=== PATIENT | female | born 1940 | race Caucasian/White ===

== ENCOUNTER 2017-01-21 18:20 | Inpatient (IN) | payer MEDICARE ==
[~2017-01-21] VITALS: Ht 157.5 cm; Wt 45.1 kg
[~2017-01-21 18:20] MED LIST: AMLO5TAB4 PO; ASPI81TA2 PO; CLON1TAB4 PO; IBUP-1482 PO; LEVO100T46 PO; LISI-603 PO; PROP80CA PO; SIMV40TA5 PO
--- NOTE | 2017-01-21 18:25 | NUR ---
BBRA 38 FROM HOME FOR INCREASED ALOC TODAY . PLACED ON MONITOR. GOWNED PT. VSS. AWAITING MD ORDER.
[2017-01-21 18:48] LABS: BASOPHILS # (AUTO) 0.4 /CMM (0.0-0.2); EOSINOPHILS % (AUTO) 0.1 % (0.0-6.0); HEMATOCRIT 26 % (33-45); HEMOGLOBIN 8.2 g/dL (11.5-14.8); LYMPHOCYTES # (AUTO) 0.5 /CMM (0.8-4.8); LYMPHOCYTES % (AUTO) 2.6 % (20.0-44.0); MEAN CORPUSCULAR HEMOGLOBIN 22 PG (26.0-33.0); MEAN CORPUSCULAR HGB CONC 32 g/dl (31.0-36.0); MEAN CORPUSCULAR VOLUME 68 fL (82-100); MONOCYTES # (AUTO) 1.2 /CMM (0.1-1.30); MONOCYTES % (AUTO) 6.8 % (2.0-12.0); NEUTROPHILS # (AUTO) 16.1 /CMM (1.8-8.9); NEUTROPHILS % (AUTO) 88.5 % (43.0-81.0); PLATELET COUNT (AUTO) 294 /CMM (150-450); RDW COEFFICIENT OF VARIATION 15.6 (11.5-15.0); RED BLOOD CELL COUNT(AUTO) 3.73 MIL/uL (4.0-5.2); WHITE BLOOD COUNT (AUTO) 18.2 K/uL (4.3-11.0)
--- NOTE | 2017-01-21 18:49 | NUR ---
CALLED NURSING SUP. FOR TELE BED
[2017-01-21] MEDS ORDERED: ATOR80TA PO (19:04)
[2017-01-21] MEDS ORDERED: TRAZ-147 PO (19:04)
[2017-01-21] MEDS ORDERED: LEVO112T2 PO (19:04)
[2017-01-21] MEDS ORDERED: DIVA500T7 PO (19:04)
[2017-01-21] MEDS ORDERED: QUET50TA PO (19:04)
[2017-01-21] MEDS ORDERED: QUET25TA PO (19:04)
--- NOTE | 2017-01-21 19:16 | NUR ---
Assumed care of pt. pt sitting up in bed w/ resp even & unlabored, nad noted. Sent to CT.
--- NOTE | 2017-01-21 19:22 | NUR ---
REPORT GIVEN TO ADELINE FOR IMMANUEL
[2017-01-21 19:23] LABS: INR 0.94 (0.87-1.13); PROTHROMBIN TIME 9.8 SECS (9.5-12.7)
[2017-01-21 19:29] LABS: CALCIUM, SERUM 8.9 mg/dL (8.5-10.1); CARBON DIOXIDE 25 mmol/L (21-32); CHLORIDE 93 mmol/L (98-107); CREATININE 0.7 mg/dL (0.6-1.3); GLUCOSE 146 mg/dL (74-106); POTASSIUM 4.1 mmol/L (3.5-5.1); SODIUM SERUM 130 mmol/L (136-145); UREA NITROGEN, BLOOD 22 mg/dL (7-18)
[2017-01-21 19:36] LABS: ALANINE AMINOTRANSFERASE < 6 U/L (12-78); ALBUMIN 3.4 g/dL (3.4-5.0); ALKALINE PHOSPHATASE 93 U/L (46-116); ASPARTATE AMINOTRANSFERASE 24 U/L (15-37); BILIRUBIN,DIRECT 0.1 mg/dL (0.0-0.2); BILIRUBIN,TOTAL 0.5 mg/dL (0.2-1.0); TOTAL PROTEIN, SERUM 7.4 g/dL (6.4-8.2)
[2017-01-21] MEDS ORDERED: ASPIRIN 325 MG TABLET ONE (19:44)
[2017-01-21] MEDS ORDERED: LEVOFLOXACIN 750 MG /D5W 150ML 150 ML IV ONE ×2 (19:44→20:00)
[2017-01-21 19:45] LABS: TROPONIN I 0.414 ng/mL (0.00-0.056)
[2017-01-21] MEDS ORDERED: IV SET PRIMARY PUMP SET 1 EA INFUS.SET MC ONE ×2 (19:45→23:53)
--- NOTE | 2017-01-21 19:46 | NUR ---
Report given to RAVINDRA Godwin for pt admission to [facility] rm 111-2
--- NOTE | 2017-01-21 19:58 | NUR ---
PT TRANSFERRED VIA ACLS PROTOCOL TO [facility] RM 111-2.
[2017-01-21 20:00] VITALS: BP 141/62
[2017-01-21] MEDS ORDERED: ASPIRIN 325 MG TABLET PO ONE (20:00)
--- NOTE | 2017-01-21 20:00 | NUR ---
REGULATORY SERVICES CONSULTANT NOTES RECEIVED PATIENT FROM ER VIA GURNEY, IV ANTIBIOTICS STARTED IN ER, INFUSING WELL. IV SITE FREE FROM ANY S/S OF INFILTRATION OR PHLEBITIS. PATIENT ALERT AND ORIENTED X2 TO NAME AND PERSON, UNSURE ABOUT HER SURROUNDINGS. PATIENT'S SON AT BEDSIDE, POC DISCUSSED WITH VERBALIZATION OF UNDERSTANDING. PLACED ON [place], REVEALING SINUS TACHYCARDIA, HR = 108 WITH OCCASIONAL PVCs. SKIN ASSESSED, PHOTOGRAPHS OF SKIN CONDITIONS DOCUMENTED PER PROTOCOL. CALL LIGHT LEFT WITHIN EASY REACH, BED IN LOWEST AND LOCKED POSITION. WILL CONTINUE TO CLOSELY MONITOR.
[2017-01-21 20:11] LABS: BASOPHILS % (MANUAL) 0 % (0.0-2.0); EOSINOPHILS % (MANUAL) 0 % (0-4); LYMPHOCYTES % (MANUAL) 2 % (16-48); MONOCYTES % (MANUAL) 3 % (0-11.0); NEUTROPHILS % (MANUAL) 95 (42-76)
[2017-01-21] MEDS ORDERED: ONDANSETRON HCL/PF 4 MG/2 ML VIAL IVP PRN (21:30)
[2017-01-21] MEDS ORDERED: FUROSEMIDE 20 MG/2 ML VIAL IV PRN (21:30)
[2017-01-21] MEDS ORDERED: ALBUTEROL FS 2.5 MG/3 ML VIAL.NEB NEB PRN (21:30)
[2017-01-21] MEDS ORDERED: Z GUARD REMEDY 2 OZ OINT TP PRN (21:30)
[2017-01-21] MEDS ORDERED: clonazePAM 0.5 MG TABLET ONE ×2 (21:33→23:27)
[2017-01-21] MEDS ORDERED: DIVALPROEX SODIUM 500 MG TABLET.DR PO ONE (21:33)
[2017-01-21 21:44] LABS: IRON, SERUM 12 ug/dl (50-175); TOTAL IRON BINDING CAPACITY 372 ug/dl (250-450)
[2017-01-21] MEDS ORDERED: clonazePAM 1 MG TABLET ONE (21:44)
[2017-01-21] MEDS: DIVALPROEX SODIUM 500 MG TABLET.DR PO SCH (21:44)
[2017-01-21] MEDS: clonazePAM 1 MG TABLET PO SCH (21:49)
--- NOTE | 2017-01-21 22:00 | NUR ---
RN NOTE: ADMINISTERED HS KLONOPIN AND DEPAKOTE ORDERED. PATIENT ABLE TO TOLERATE WELL.
--- NOTE | 2017-01-21 23:28 | NUR ---
RN NOTES DR KANG AT BEDSIDE TO ASSESS THE PATIENT. PATIENT IS ANXIOUS. DR KANG WITH NEW ORDER FOR KLONOPIN 0.5 MG PO X1 DOSE NOW. ORDER READ BACK FOR CLARIFICATION. WILL ADMINISTER AND MONITOR CLOSELY
[2017-01-21] MEDS ORDERED: clonazePAM 0.5 MG TABLET PO ONE (23:30)
[2017-01-21] MEDS ORDERED: IBUPROFEN 400 MG TABLET ONE (23:40)
[2017-01-21] MEDS: IBUPROFEN 400 MG TABLET PO PRN (23:45)
--- NOTE | 2017-01-21 23:45 | NUR ---
RN NOTES DR KANG MADE AWARE OF LATEST TEMPERATURE 101.3. DR KANG WITH NEW ORDER FOR IBUPROFEN 400MG Q6H PRN. ORDER READ BACK FOR CLARIFICATION. WILL ADMINISTER MEDICATION AND CONTINUE TO CLOSELY MONITOR
[2017-01-21] MEDS ORDERED: VANCOMYCIN 1 GM VIAL ONE (23:53)
[2017-01-21] MEDS ORDERED: SECONDARY IV SET 1 EA INFUS.SET MC ONE (23:54)
[2017-01-21] MEDS ORDERED: IV NS 0.9% 250 ML IV ONE (23:54)
[2017-01-21] MEDS ORDERED: BLOOD IV SET 1 EA INFUS.SET MC ONE (23:54)
[2017-01-21] MEDS ORDERED: IV D5W 250 ML IV ONE (23:55)
[2017-01-22] VITALS: BP 136/81
[2017-01-22] MEDS ORDERED: VANCOMYCIN 1 GM in IV D5W 250 ML IV ONE ×2
[2017-01-22] MEDS ORDERED: MEROPENEM 500 MG VIAL IV ONE (00:56)
[2017-01-22] MEDS ORDERED: IV NS 0.9% 250 ML IV ONE (01:55)
--- NOTE | 2017-01-22 02:10 | NUR ---
RN NOTES - BLOOD TRANSFUSION 0210: BLOOD TRANSFUSION STARTED VIA LEFT FA IV #[id number], WILL MONITOR CLOSELY 0450: BLOOD TRANSFUSION COMPLETED, TOLERATED WELL, FREE FROM ANY S/S OF BLOOD TRANSFUSION REACTION.
[2017-01-22 04:00] VITALS: BP 128/59
[2017-01-22] MEDS ORDERED: MEROPENEM 500 MG in IV NS 0.9% 50 ML IV SCH (05:00)
[2017-01-22] MEDS ORDERED: SECONDARY IV SET 1 EA INFUS.SET MC ONE (05:02)
[2017-01-22] MEDS ORDERED: FUROSEMIDE 20 MG/2 ML VIAL ONE (05:02)
[2017-01-22] MEDS ORDERED: IV NS 0.9% 50 ML IV ONE (05:03)
--- NOTE | 2017-01-22 07:00 | NUR ---
RN CLOSING NOTES PATIENT RESTING IN BED. IN AND OUT MATIAS CATHETERIZATION WITH 950CC OUTPUT. PATIENT ENDORSED TO THE AM SHIFT NURSE FOR CONTINUITY OF CARE. DUE MEDS FROM [id number] IN PATIENT'S CHART DUE TO COMPUTER SYSTEM DOWNTIME.
--- NOTE | 2017-01-22 07:15 | NUR ---
RN INITIAL NOTES: Rec'd pt awake on bed, A/O x1 w/ confusion, on and off crying, and looks anxious. On room air, saturating at 97%. On telemonitor, SR w/ occasional PVCs, HR 92. Pt has L AC G20 and LFA G20, SL, flushed, patent & intact w/ no signs of infection/ infiltration noted. Provided comfort & safety measures. Needs attended. Will continue to monitor.
[2017-01-22 07:52] LABS: HEMATOCRIT 32 % (33-45); HEMOGLOBIN 9.9 g/dL (11.5-14.8); MEAN CORPUSCULAR HEMOGLOBIN 22 PG (26.0-33.0); MEAN CORPUSCULAR HGB CONC 31 g/dl (31.0-36.0); MEAN CORPUSCULAR VOLUME 72 fL (82-100); PLATELET COUNT (AUTO) 296 /CMM (150-450); RDW COEFFICIENT OF VARIATION 17.9 (11.5-15.0); RED BLOOD CELL COUNT(AUTO) 4.46 MIL/uL (4.0-5.2); WHITE BLOOD COUNT (AUTO) 15.2 K/uL (4.3-11.0)
[2017-01-22 08:00] VITALS: BP 97/67
[2017-01-22 08:06] LABS: ALANINE AMINOTRANSFERASE 24 U/L (12-78); ALBUMIN 3.1 g/dL (3.4-5.0); ALKALINE PHOSPHATASE 102 U/L (46-116); ASPARTATE AMINOTRANSFERASE 25 U/L (15-37); B-TYPE NATRIURETIC PEPTIDE 3051 PG/ML (0-125); BILIRUBIN,TOTAL 0.7 mg/dL (0.2-1.0); CALCIUM, SERUM 8.4 mg/dL (8.5-10.1); CARBON DIOXIDE 25 mmol/L (21-32); CHLORIDE 93 mmol/L (98-107); CREATININE 0.9 mg/dL (0.6-1.3); GLUCOSE 100 mg/dL (74-106); PHOSPHORUS 3.6 mg/dL (2.5-4.9); POTASSIUM 3.7 mmol/L (3.5-5.1); SODIUM SERUM 129 mmol/L (136-145); TOTAL PROTEIN, SERUM 7.7 g/dL (6.4-8.2); UREA NITROGEN, BLOOD 22 mg/dL (7-18)
[2017-01-22] MEDS ORDERED: FEE PK DOSING 1 MIN EA MC ONE (08:12)
[2017-01-22 08:34] LABS: VALPROIC ACID 64 ug/mL (50-100)
[2017-01-22] MEDS: ASPIRIN 81 MG TAB.CHEW PO SCH (08:36)
[2017-01-22] MEDS: LEVOTHYROXINE SODIUM 112 MCG TABLET PO SCH (08:37)
[2017-01-22] MEDS: PANTOPRAZOLE 40 MG TABLET.DR PO SCH (08:37)
[2017-01-22] MEDS: FUROSEMIDE 20 MG/2 ML VIAL IV SCH (08:38)
[2017-01-22] MEDS: DOCUSATE SODIUM 100 MG CAPSULE PO SCH ×2 (08:38→16:53)
[2017-01-22] MEDS: QUETIAPINE FUMARATE 25 MG TABLET PO SCH ×3 (08:38→21:26)
[2017-01-22] MEDS: ENOXAPARIN SODIUM 40 MG/0.4 ML DISP.SYRIN SQ SCH ×2 (08:39→21:24)
[2017-01-22] MEDS: AMLODIPINE BESYLATE 5 MG TABLET PO SCH ×2 (08:39→16:50)
[2017-01-22] MEDS: LISINOPRIL (20MG) 20 MG TABLET PO SCH ×2 (08:39→16:52)
[2017-01-22 08:46] LABS: EOSINOPHILS % (MANUAL) 1 % (0-4); LYMPHOCYTES % (MANUAL) 4 % (16-48); MONOCYTES % (MANUAL) 7 % (0-11.0); NEUTROPHILS % (MANUAL) 88 (42-76)
[2017-01-22 08:50] LABS: TROPONIN I 0.507 ng/mL (0.00-0.056)
[2017-01-22 09:06] LABS: CHOLESTEROL 129 mg/dL (<200); HDL CHOLESTEROL 55 mg/dL (40-60); LDL 50 mg/dL (0-99); THYROID STIMULATING HORMONE 1.195 uIU/mL (0.358-3.74); TRIGLYCERIDES 70 mg/dL (30-150)
--- NOTE | 2017-01-22 11:01 | NUR ---
RN NOTES: Dr. Sandoval made aware of trending up Trop I and BNP 3051 w/ orders for cardiac consult w/ Dr. Layne and Pysch consult c/o Dr. Livingston.
--- NOTE | 2017-01-22 11:03 | NUR ---
RN NOTES: Called Dr. Layne for cardio consult. Awaiting for call back.
--- NOTE | 2017-01-22 11:10 | NUR ---
RN NOTES: Dr. Anguiano seen & examined pt. Made aware of the trop I and BNP. Consult w/ Dr. Layne cancelled, secretary to the vice president of his office notified.
--- NOTE | 2017-01-22 11:20 | NUR ---
RN NOTES: Explained to pt the importance of Telemonitor but pt keeps on removing it. Dr. Anguiano made aware.
--- NOTE | 2017-01-22 11:30 | NUR ---
RN NOTES: Dr. Sandoval seen & examined the pt.
[2017-01-22 11:38] LABS: BILIRUBIN,URINE NEGATIVE (NEGATIVE); BLOOD, URINE 1+ Ery/uL (NEGATIVE); COLOR,URINE YELLOW (YELLOW); KETONES,URINE NEGATIVE (NEGATIVE); LEUKOCYTE ESTERASE ,URINE 1+ (NEGATIVE); NITRITE, URINE POSITIVE (NEGATIVE); PH,URINE 6.5 (5.0-8.0); PROTEIN,URINE TRACE mg/dl (NEGATIVE); UGLUCOSE NEGATIVE (NEGATIVE); UROBILINOGEN,URINE 0.2 EU/dL (0.2)
[2017-01-22 11:42] LABS: APPEARANCE,URINE HAZY (CLEAR)
[2017-01-22 11:53] LABS: BACTERIA,URINE Few /HPF (None Seen); RBC,URINE 0-2 /HPF (0-2); SQUAMOUS EPITHELIAL CELL,UR Few /HPF (None Seen); WBC,URINE 80-100 /HPF (0-3)
[2017-01-22 12:00] VITALS: BP 125/58
[2017-01-22] MEDS: VANCOMYCIN 500 MG in IV D5W 100 ML IV SCH ×2 (12:07→23:08)
--- NOTE | 2017-01-22 12:15 | NUR ---
RN NOTES: Matt from geropysch unit confirmed psych consult of pt w/ Dr. Livingston.
[2017-01-22] MEDS: IBUPROFEN 400 MG TABLET PO PRN (13:48)
[2017-01-22 16:00] VITALS: BP_SYST 132; BP_SYST 174; BP_DIAS 60; BP_DIAS 85
--- NOTE | 2017-01-22 16:00 | NUR ---
RN NOTES: Pt seen & examined by Dr. Persaud. Request for Authorization to release medical records from [facility] faxed.
--- NOTE | 2017-01-22 16:30 | NUR ---
RN NOTES: As per TANA Willard, okay to give BP meds that was not given this AM. BP 187/67, rechecked after 130/60.
--- NOTE | 2017-01-22 16:40 | NUR ---
RN NOTES: Pt seen & examined by Dr. Wayne and TANA Willard.
[2017-01-22] MEDS: MEROPENEM 500 MG in IV NS 0.9% 50 ML IV SCH (16:52)
[2017-01-22 17:20] LABS: THYROID STIMULATING HORMONE 1.226 uIU/mL (0.358-3.74); URIC ACID 3.9 mg/dL (2.6-7.2)
[2017-01-22 17:28] LABS: C-REACTIVE PROTEIN 36.2 mg/dL (0.0-0.9)
[2017-01-22 17:50] LABS: RETICULOCYTE COUNT 1.5 % (0.6-2.5)
--- NOTE | 2017-01-22 19:29 | NUR ---
RN CLOSING NOTES: No acute changes noted w/in shift. Pt is more comfortable & calm w/ family at bedside. Pt kept removing telemonitor, risks explain but pt still removing it. L AC G20 and LFA G20, kept patent & intact w/ no signs of infection/ infiltration noted. Kept well rested. Needs attended. Son Cruz brought some of the medical records of her mother, flagged out in pt's chart. Endorsed to PM RN.
--- NOTE | 2017-01-22 19:30 | NUR ---
Pt in bed. Denies SOB/pain. Family assisted pt with changing. Pt often refuses tele. Explained importance of tele monitor to pt and family, still refused. SL on L FA and L AC. Pt uncooperative with care. Fall precautions observed. Call light in reach.
[2017-01-22 20:00] VITALS: BP 112/76
--- NOTE | 2017-01-22 21:00 | NUR ---
Pt frequently screams but unable to state reason. Appears stable. Always taking off tele monitor. Uncooperative with care and forgetful. Confusion noted. Fall precautions maintained. Call light in reach. Bed alarm used.
[2017-01-22] MEDS: TRAZODONE 50 MG TABLET PO SCH ×2 (21:20→21:26)
[2017-01-22] MEDS: ATORVASTATIN 40 MG TABLET PO SCH ×2 (21:20→21:26)
[2017-01-22] MEDS: DIVALPROEX SODIUM 500 MG TABLET.DR PO SCH (21:21)
[2017-01-22] MEDS: clonazePAM 1 MG TABLET PO SCH (21:21)
[2017-01-23] VITALS: BP 123/59
[2017-01-23 04:00] VITALS: BP 126/63
[2017-01-23] MEDS: MEROPENEM 500 MG in IV NS 0.9% 50 ML IV SCH ×2 (04:03→17:16)
--- NOTE | 2017-01-23 05:33 | NUR ---
Pt remains confused. Oftentimes refusing care and taking off tele monitor. No acute changes noted. Frequently screams without purpose. Fall precautions maintained. Call light in reach. Will continue to monitor.
[2017-01-23 07:09] LABS: HEMATOCRIT 31 % (33-45); MEAN CORPUSCULAR HEMOGLOBIN 23 PG (26.0-33.0); MEAN CORPUSCULAR HGB CONC 32 g/dl (31.0-36.0); MEAN CORPUSCULAR VOLUME 70 fL (82-100); PLATELET COUNT (AUTO) 266 /CMM (150-450); RDW COEFFICIENT OF VARIATION 18.2 (11.5-15.0); RED BLOOD CELL COUNT(AUTO) 4.42 MIL/uL (4.0-5.2); WHITE BLOOD COUNT (AUTO) 10.6 K/uL (4.3-11.0)
--- NOTE | 2017-01-23 07:18 | NUR ---
RN INITIAL NOTES: Rec'd pt awake on bed, A/O x2-3 w/ confusion, on and off crying and screaming, and looks anxious. On room air, not in any distress. On telemonitor, SR. Pt has L AC G20 and LFA G20, SL, flushed, patent & intact w/ no signs of infection/ infiltration noted. Provided comfort & safety measures. Needs attended. Will continue to monitor.
[2017-01-23 07:24] LABS: CALCIUM, SERUM 8.3 mg/dL (8.5-10.1); CARBON DIOXIDE 26 mmol/L (21-32); CHLORIDE 93 mmol/L (98-107); CREATININE 0.8 mg/dL (0.6-1.3); GLUCOSE 128 mg/dL (74-106); MAGNESIUM 1.7 mg/dL (1.8-2.4); PHOSPHORUS 3.6 mg/dL (2.5-4.9); POTASSIUM 3.2 mmol/L (3.5-5.1); SODIUM SERUM 129 mmol/L (136-145); UREA NITROGEN, BLOOD 14 mg/dL (7-18)
[2017-01-23 07:41] LABS: BAND % (MANUAL) 6 % (0.0-5.0); EOSINOPHILS % (MANUAL) 4 % (0-4); LYMPHOCYTES % (MANUAL) 6 % (16-48); MONOCYTES % (MANUAL) 9 % (0-11.0); NEUTROPHILS % (MANUAL) 75 (42-76)
[2017-01-23 08:00] VITALS: BP 145/57
[2017-01-23] MEDS: DOCUSATE SODIUM 100 MG CAPSULE PO SCH ×2 (08:27→18:23)
[2017-01-23] MEDS: QUETIAPINE FUMARATE 25 MG TABLET PO SCH ×2 (08:28→20:01)
[2017-01-23] MEDS: PANTOPRAZOLE 40 MG TABLET.DR PO SCH (08:28)
[2017-01-23] MEDS: AMLODIPINE BESYLATE 5 MG TABLET PO SCH (08:28)
[2017-01-23] MEDS: LEVOTHYROXINE SODIUM 112 MCG TABLET PO SCH (08:28)
[2017-01-23] MEDS: LISINOPRIL (20MG) 20 MG TABLET PO SCH (08:28)
[2017-01-23] MEDS: ASPIRIN 81 MG TAB.CHEW PO SCH (08:28)
[2017-01-23] MEDS: FUROSEMIDE 20 MG/2 ML VIAL IV SCH (08:29)
[2017-01-23] MEDS: ENOXAPARIN SODIUM 40 MG/0.4 ML DISP.SYRIN SQ SCH ×2 (08:32→21:23)
--- NOTE | 2017-01-23 10:00 | NUR ---
RN NOTES: Both IV lines got infiltrated. Tried inserting 3x from 2 RN's but failed. Reported to CN for midline insertion.
[2017-01-23] MEDS ORDERED: SECONDARY IV SET 1 EA INFUS.SET MC ONE (11:08)
[2017-01-23 11:11] LABS: CARCINOEMBRYONIC AG (CEA) 4.8 ng/mL (0.0-4.7)
[2017-01-23] MEDS: Magnesium 1GM/D5W 100ML PREMIX 100 ML IV SCH ×2 (11:13→17:22)
[2017-01-23] MEDS: POTASSIUM CL. PREMIX PERIPHER. 50 ML IV SCH ×4 (11:13→18:24)
[2017-01-23] MEDS ORDERED: IV NS 0.9% 250 ML IV ONE (11:16)
[2017-01-23] MEDS ORDERED: IV SET PRIMARY PUMP SET 1 EA INFUS.SET MC ONE (11:16)
[2017-01-23 12:00] VITALS: BP 142/59
--- NOTE | 2017-01-23 14:00 | NUR ---
RN NOTES: Pt seen and examined by Dr. Livingston.
[2017-01-23 14:42] LABS: URINE SODIUM, RANDOM 37 mmol/l (40-220)
[2017-01-23] MEDS: LORAZEPAM 1 MG TABLET PO PRN (15:03)
[2017-01-23 16:00] VITALS: BP 132/73
[2017-01-23 16:04] LABS: OSMOLALITY,URINE 176 mOS/kg (340-1090)
[2017-01-23] MEDS: VANCOMYCIN 0.75 GM in IV D5W 250 ML IV SCH (17:43)
--- NOTE | 2017-01-23 18:56 | NUR ---
RN CLOSING NOTES: No acute changes noted w/in shift. L AC G20, kept patent & intact w/ no signs of infection/ infiltration noted. Fluid restriction observed. Kept well rested. Needs attended. Call light placed w/in reach. Bed kept low & in locked position. Will endorse to PM RN for IMMANUEL.
--- NOTE | 2017-01-23 19:45 | NUR ---
RN INITIAL NOTE; PT ON THE BED ANXIOUS , ON AND OF CRYING , SCREAMING. A/O X 2 , CONFUSE , BREATHING EVEN AND UNLABORED ON ROOM AIR. PERIPHERAL IV IN LAC 20 G INTACT AND PATENT . INCONTINENT TO BOWEL/BLADDER. BED IN THE LOWEST AND LOCKED POSITION , SAFETY MEASURES APPLIED. DENIED ANY PAIN AT THIS TIME . WILL TURN AND REPOSITION Q2H . WILL KEEP CLEAN AND DRY . CALL LIGHT WITHIN REACH. WILL CONTINUE TO MONITOR .
[2017-01-23 20:00] VITALS: BP 156/74
[2017-01-23] MEDS: ATORVASTATIN 40 MG TABLET PO SCH (21:16)
[2017-01-23] MEDS: DIVALPROEX SODIUM 500 MG TABLET.DR PO SCH (21:16)
[2017-01-23] MEDS: TRAZODONE 50 MG TABLET PO SCH (21:16)
[2017-01-24] MEDS: LORAZEPAM 1 MG TABLET PO PRN ×2 (03:00→10:51)
--- NOTE | 2017-01-24 03:10 | NUR ---
RN NOTE; PRN ATIVAN 1 MG PO GIVEN FOR ANXIETY , TOLERATED WELL AT THIS TIME, WILL CONTINUE TO MONITOR .
[2017-01-24 04:00] VITALS: BP 117/53
[2017-01-24] MEDS ORDERED: IV NS 0.9% 250 ML IV ONE (04:35)
[2017-01-24] MEDS: VANCOMYCIN 0.75 GM in IV D5W 250 ML IV SCH (04:37)
[2017-01-24] MEDS: MEROPENEM 500 MG in IV NS 0.9% 50 ML IV SCH ×2 (05:47→16:08)
[2017-01-24 06:31] LABS: BASOPHILS % (AUTO) 0.2 % (0.0-2.0); EOSINOPHILS # (AUTO) 0.3 /CMM (0.0-0.7); EOSINOPHILS % (AUTO) 3.2 % (0.0-6.0); HEMATOCRIT 29 % (33-45); HEMOGLOBIN 9.4 g/dL (11.5-14.8); LYMPHOCYTES # (AUTO) 0.9 /CMM (0.8-4.8); LYMPHOCYTES % (AUTO) 8.9 % (20.0-44.0); MEAN CORPUSCULAR HEMOGLOBIN 23 PG (26.0-33.0); MEAN CORPUSCULAR HGB CONC 32 g/dl (31.0-36.0); MEAN CORPUSCULAR VOLUME 71 fL (82-100); MONOCYTES # (AUTO) 1.8 /CMM (0.1-1.30); NEUTROPHILS % (AUTO) 69.7 % (43.0-81.0); PLATELET COUNT (AUTO) 339 /CMM (150-450); RDW COEFFICIENT OF VARIATION 18.5 (11.5-15.0); RED BLOOD CELL COUNT(AUTO) 4.15 MIL/uL (4.0-5.2); WHITE BLOOD COUNT (AUTO) 10.1 K/uL (4.3-11.0)
[2017-01-24 07:00] LABS: CALCIUM, SERUM 8.3 mg/dL (8.5-10.1); CARBON DIOXIDE 28 mmol/L (21-32); CHLORIDE 97 mmol/L (98-107); CREATININE 0.6 mg/dL (0.6-1.3); GLUCOSE 192 mg/dL (74-106); MAGNESIUM 2.2 mg/dL (1.8-2.4); PHOSPHORUS 3.5 mg/dL (2.5-4.9); POTASSIUM 3.3 mmol/L (3.5-5.1); SODIUM SERUM 133 mmol/L (136-145); UREA NITROGEN, BLOOD 18 mg/dL (7-18)
--- NOTE | 2017-01-24 07:00 | NUR ---
RN EOS NOTE; PT REMAINED STABLE DURING THE SHIFT. NO ANY DISTRESS NOTED . SLEPT ON AND OFF, PRN ATIVAN GIVEN NEEDED , V/S WNL . IV ATB TOLERATED WELL. ALL NEEDS ATTENDED PROMPTLY. CALL LIGHT WITHIN REACH . WILL ENDORSE TO NEXT SHIFT RN FOR CONTINUITY OF CARE.
[2017-01-24 07:06] LABS: EOSINOPHILS % (MANUAL) 3 % (0-4); LYMPHOCYTES % (MANUAL) 14 % (16-48); MONOCYTES % (MANUAL) 14 % (0-11.0); NEUTROPHILS % (MANUAL) 69 (42-76)
[2017-01-24 07:07] LABS: FERRITIN 67 ng/mL (8-388); THYROID STIMULATING HORMONE 2.586 uIU/mL (0.358-3.74); URIC ACID 3.8 mg/dL (2.6-7.2)
[2017-01-24 08:00] VITALS: BP 115/60
--- NOTE | 2017-01-24 08:00 | NUR ---
MS1/RN AM SHIFT INITIAL NOTES RECEIVED PT AWAKE SITTING IN BED. PT A/O X 1-2 NOTED WITH CONFUSION, ABLE TO VERBALIZED NEEDS, DENIES PAIN. NO ACUTE CHANGE OF CONDITION, NO FEVER. ON ROOM AIR SATURATING @ 98%, NO SOB, RESPIRATIONS EVEN & UNLABORED. LUNG SOUNDS CLEAR. IV SITE FLUSHED, PATENT WITH NO S/S OF INFECTION, HL. PT IS COMFORTABLE AT THIS TIME. CL WITHIN REACHED AND SAFETY MAINTAINED. ON GOING MONITORING.
[2017-01-24] MEDS: LEVOTHYROXINE SODIUM 112 MCG TABLET PO SCH (08:32)
[2017-01-24] MEDS: LISINOPRIL (20MG) 20 MG TABLET PO SCH (08:32)
[2017-01-24] MEDS: DOCUSATE SODIUM 100 MG CAPSULE PO SCH ×2 (08:33→16:08)
[2017-01-24] MEDS: PANTOPRAZOLE 40 MG TABLET.DR PO SCH (08:33)
[2017-01-24] MEDS: AMLODIPINE BESYLATE 5 MG TABLET PO SCH (08:33)
[2017-01-24] MEDS: ASPIRIN 81 MG TAB.CHEW PO SCH (08:33)
[2017-01-24] MEDS: FUROSEMIDE 20 MG/2 ML VIAL IV SCH (08:33)
[2017-01-24] MEDS: QUETIAPINE FUMARATE 25 MG TABLET PO SCH ×2 (08:33→20:46)
[2017-01-24] MEDS: ENOXAPARIN SODIUM 40 MG/0.4 ML DISP.SYRIN SQ SCH ×2 (08:35→20:51)
[2017-01-24] MEDS ORDERED: POTASSIUM CHLORIDE 20 MEQ TAB.PRT.SR PO ONE ×2 (10:00→10:30)
--- NOTE | 2017-01-24 11:30 | NUR ---
MS1/RN ROUNDS - DR. TRIANA UPDATED PT'S CONDITION. PT SEEN & EXAMINED BY DR. TRIANA. NO NEW ORDERS RECEIVED AT THIS TIME.
[2017-01-24] MEDS: IBUPROFEN 400 MG TABLET PO PRN (14:57)
[2017-01-24 16:00] VITALS: BP 148/72
--- NOTE | 2017-01-24 16:15 | NUR ---
MS1/RN ROUNDS - DR. ELLIS UPDATED PT'S CONDITION. ASKED IF ANY TREATMENT FOR THE REPORTED LATEST TROPONIN PER MD, NONE AT THIS TIME. 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 ANDRES @ [phone]. NO NEW ORDERS RECEIVED. NO CHANGE OF CONDITION. MONITORING CONTINUED.
--- NOTE | 2017-01-24 19:40 | NUR ---
MS1/RN AM SHIFT END NOTES ALL NEEDS MET. NO ACUTE CHANGE OF CONDITION NOTED DURING SHIFT. PT ENDORSED TO PM NURSE TO CONTINUE CARE. CL WITHIN REACHED AND SAFETY MAINTAINED.
--- NOTE | 2017-01-24 19:50 | NUR ---
RN INITIAL NOTE; PT ON THE BED RESTING , SCREAMING/CALM/SMILING ON/OFF A/O X 2 , CONFUSE , BREATHING EVEN AND UNLABORED ON ROOM AIR. PERIPHERAL IV IN LAC 20 G INTACT AND PATENT . INCONTINENT TO BOWEL/BLADDER. BED IN THE LOWEST AND LOCKED POSITION , SAFETY MEASURES APPLIED. DENIED ANY PAIN AT THIS TIME . WILL TURN AND REPOSITION Q2H . WILL KEEP CLEAN AND DRY . CALL LIGHT WITHIN REACH. WILL CONTINUE TO MONITOR .
[2017-01-24 20:00] VITALS: BP 157/76
[2017-01-24] MEDS: ATORVASTATIN 40 MG TABLET PO SCH (20:46)
[2017-01-24] MEDS: DIVALPROEX SODIUM 500 MG TABLET.DR PO SCH (20:46)
[2017-01-24] MEDS: TRAZODONE 50 MG TABLET PO SCH (20:46)
[2017-01-25] MEDS ORDERED: IV NS 0.9% 250 ML IV ONE (03:28)
[2017-01-25] MEDS ORDERED: IV SET PRIMARY PUMP SET 1 EA INFUS.SET MC ONE (03:29)
[2017-01-25] MEDS: MEROPENEM 500 MG in IV NS 0.9% 50 ML IV SCH ×2 (04:08→16:08)
[2017-01-25] MEDS: LORAZEPAM 1 MG TABLET PO PRN (04:19)
--- NOTE | 2017-01-25 04:19 | NUR ---
RN NOTE; PRN ATIVAN 1 MG PO GIVEN FOR ANXIETY , TOLERATED WELL AT THIS TIME, WILL CONTINUE TO MONITOR .
--- NOTE | 2017-01-25 05:20 | NUR ---
PATIENT TRANSFERRED TO MED/SURG UNIT BED NO 326-2 FOR FACILITY ACCOMMODATION , REPORT GIVEN TO NURSE SHELBI . PT IS IN STABLE CONDITION WHILE TRANSFERRING .
--- NOTE | 2017-01-25 05:30 | NUR ---
RN NOTE PT ARRIVED ON UNIT. AAOX1-2, CONFUSED. NO S/S OF ANY DISTRESS OR DISCOMFORT AT THIS TIME, BREATHING NON-LABORED AND EVEN. IV INTACT AND PATENT, ABX INFUSING FROM [place]. M/S STATUS. ORIENTATED TO UNIT AND CALL LIGHT. 1:1 AT BEDSIDE. WILL CONT TO MONITOR. WILL F/U WITH DAY SHIFT FOR IMMANUEL.
--- NOTE | 2017-01-25 06:39 | NUR ---
PT EDWARD BEE CALLED AND INFORMED ABOUT PT TRANSFERRING TO MED/SURG UNIT 326-2 ,
[2017-01-25 07:26] LABS: BASOPHILS % (AUTO) 0.1 % (0.0-2.0); EOSINOPHILS # (AUTO) 0.6 /CMM (0.0-0.7); EOSINOPHILS % (AUTO) 6.3 % (0.0-6.0); HEMATOCRIT 31 % (33-45); HEMOGLOBIN 9.8 g/dL (11.5-14.8); LYMPHOCYTES # (AUTO) 1.3 /CMM (0.8-4.8); LYMPHOCYTES % (AUTO) 13.2 % (20.0-44.0); MEAN CORPUSCULAR HEMOGLOBIN 22 PG (26.0-33.0); MEAN CORPUSCULAR HGB CONC 31 g/dl (31.0-36.0); MEAN CORPUSCULAR VOLUME 72 fL (82-100); MONOCYTES % (AUTO) 10.2 % (2.0-12.0); NEUTROPHILS # (AUTO) 7.2 /CMM (1.8-8.9); NEUTROPHILS % (AUTO) 70.2 % (43.0-81.0); PLATELET COUNT (AUTO) 377 /CMM (150-450); RDW COEFFICIENT OF VARIATION 18.4 (11.5-15.0); RED BLOOD CELL COUNT(AUTO) 4.38 MIL/uL (4.0-5.2); WHITE BLOOD COUNT (AUTO) 10.2 K/uL (4.3-11.0)
--- NOTE | 2017-01-25 07:30 | NUR ---
MS RN NOTES RECEIVED PATIENT AWAKE IN BED, AOX3, BREATHING EVEN AND NON LABORED, NO S/S OF ANY DISCOMFORT OR RESPIRATORY DISTRESS NOTED. WITH LAC # 20 PATENT AND INTACT. CALL LIGHT WITHIN REACH, BED IN LOW POSITION FOR SAFETY PRECAUTIONS. WILL CONTINUE TO MONITOR.
[2017-01-25 07:43] LABS: CALCIUM, SERUM 8.3 mg/dL (8.5-10.1); CARBON DIOXIDE 27 mmol/L (21-32); CHLORIDE 99 mmol/L (98-107); CREATININE 0.6 mg/dL (0.6-1.3); GLUCOSE 122 mg/dL (74-106); MAGNESIUM 1.9 mg/dL (1.8-2.4); PHOSPHORUS 3.6 mg/dL (2.5-4.9); POTASSIUM 3.6 mmol/L (3.5-5.1); SODIUM SERUM 134 mmol/L (136-145); UREA NITROGEN, BLOOD 20 mg/dL (7-18)
[2017-01-25 08:00] VITALS: BP_SYST 144; BP_SYST 149; BP_DIAS 75
[2017-01-25] MEDS: PANTOPRAZOLE 40 MG TABLET.DR PO SCH (08:41)
[2017-01-25] MEDS: QUETIAPINE FUMARATE 25 MG TABLET PO SCH ×2 (08:41→21:32)
[2017-01-25] MEDS: LEVOTHYROXINE SODIUM 112 MCG TABLET PO SCH (08:41)
[2017-01-25] MEDS: ASPIRIN 81 MG TAB.CHEW PO SCH (08:41)
[2017-01-25] MEDS: FUROSEMIDE 20 MG/2 ML VIAL IV SCH (08:42)
[2017-01-25] MEDS: DOCUSATE SODIUM 100 MG CAPSULE PO SCH ×2 (08:42→16:08)
[2017-01-25] MEDS: ENOXAPARIN SODIUM 40 MG/0.4 ML DISP.SYRIN SQ SCH ×2 (08:42→21:26)
[2017-01-25] MEDS: AMLODIPINE BESYLATE 5 MG TABLET PO SCH (08:42)
[2017-01-25] MEDS: LISINOPRIL (20MG) 20 MG TABLET PO SCH (08:43)
--- NOTE | 2017-01-25 08:45 | NUR ---
MS RN NOTES SEEN AND EXAMINED BY DR. ROBBINS WITH NO NEW ORDERS MADE. WILL CONTINUE TO MONITOR.
--- NOTE | 2017-01-25 09:00 | NUR ---
MS RN NOTES ALL DUE MEDS GIVEN.
[2017-01-25 10:00] LABS: BAND % (MANUAL) 2 % (0.0-5.0); EOSINOPHILS % (MANUAL) 3 % (0-4); LYMPHOCYTES % (MANUAL) 13 % (16-48); MONOCYTES % (MANUAL) 5 % (0-11.0); NEUTROPHILS % (MANUAL) 77 (42-76)
[2017-01-25 16:00] VITALS: BP 152/81
--- NOTE | 2017-01-25 18:29 | NUR ---
MS RN NOTES ALL NEEDS ATTENDED AND ANTICIPATED. STABLE THE WHOLE SHIFT, ENDORSED TO INCOMING SHIFT FOR CONTINUITY OF CARE.
--- NOTE | 2017-01-25 19:30 | NUR ---
RN NOTES: -RECEIVED LYING ON BED COMFORTABLY,ON SEMI FOWLERS POSITION,AOX3,ON ROOM AIR,WITH SITTER AT BED SIDE,NO SIGN OF RESPIRATORY DISTRESS NOTED UPON CHANGE OF SHIFT,CANNULA LAC G#20 INTACT.CALL LIGHT WITH IN REACH, SIDE RAILS UP,FAALL AND SAFETY PRECAUTION OBSERVE.
[2017-01-25 20:00] VITALS: BP 148/90
[2017-01-25] MEDS: DIVALPROEX SODIUM 500 MG TABLET.DR PO SCH (21:31)
[2017-01-25] MEDS: ATORVASTATIN 40 MG TABLET PO SCH (21:32)
[2017-01-25] MEDS: TRAZODONE 50 MG TABLET PO SCH (21:32)
--- NOTE | 2017-01-25 22:00 | NUR ---
RN NOTES: CRYING IN BETWEEN BUT VERY COOPERATIVE SHE TOOK ALL HER ORAL MEDICATION WITH APPLESAUCE, KEEP ON COMFORTABLE POSITION ,NOTICE BILATERAL FOOT DROP,BOTH LOWER EXTREMITIES ELEVATED,CALL LIGHT WITHIN EASY REACH.BED ALARM ON AT ALL TIMES.
[2017-01-25 22:30] VITALS: BP 131/73
[2017-01-25] MEDS: IBUPROFEN 400 MG TABLET PO PRN (22:36)
--- NOTE | 2017-01-25 22:40 | NUR ---
RN NOTES: PATIENT COMPLAINED OF MILD HEADACHE AND REQUEST FOR PAIN MEDICATION,BP-131/73 HR-90,NON PHARMACOLOGIC INTERVENTION RENDERED, DIM LIGHTING AND BACK MASSAGE TO HELP HER FEEL COMFORTABLE AND RELAX,PRN FOR PAIN GIVEN.KEPT COMFORTABLE IN BED.
[2017-01-26] MEDS: LORAZEPAM 1 MG TABLET PO PRN ×2 (02:09→15:41)
[2017-01-26 02:10] VITALS: BP 155/65
--- NOTE | 2017-01-26 02:11 | NUR ---
RN NOTES: PATIENT WAS AWAKEN BY THE ROOM MATE AND STARTED TO FEEL ANXIOUS,TALKING CONTINOUSLY AND ASKING FOR MEDICATION,PRN FOR ANXIETY,GIVEN,LATEST BP-155/67 KY-75,CALLS AND NEEDS ATTENDED,DIAPER CHANGE.
[2017-01-26] MEDS: MEROPENEM 500 MG in IV NS 0.9% 50 ML IV SCH ×2 (04:19→16:26)
--- NOTE | 2017-01-26 06:11 | NUR ---
RN NOTES: BED BATH RENDERED, CLEAN AND CHANGE.NOT CRYING ANYMORE,SHE IS SMILING AFTER MORNING CARE DONE SHE FEEL COMFORTABLE.CALL LIGHT WITHIN REACH TRYING TO SLEEP AGAIN.
--- NOTE | 2017-01-26 06:37 | NUR ---
RN NOTES: ASLEEP,WITH SITTER AT BED SITE, NO EPISODE OF CRYING AFTER MORNING CARE DONE, ENDORSED FOR CONTINUITY OF CARE, CALL LIGHT WITHIN REACH.
[2017-01-26 07:19] LABS: CALCIUM, SERUM 8.7 mg/dL (8.5-10.1); CARBON DIOXIDE 27 mmol/L (21-32); CHLORIDE 99 mmol/L (98-107); CREATININE 0.7 mg/dL (0.6-1.3); GLUCOSE 123 mg/dL (74-106); POTASSIUM 3.5 mmol/L (3.5-5.1); SODIUM SERUM 136 mmol/L (136-145); UREA NITROGEN, BLOOD 27 mg/dL (7-18)
--- NOTE | 2017-01-26 07:30 | NUR ---
MS RN NOTES RECEIVED PATIENT AWAKE IN BED, AOX2. WITH EPISODES OF CONFUSION NOTED. BREATHING EVEN AND NON LABORED. DENIES ANY PAIN OR DISCOMFORT AT THIS TIME. SITTER AT BEDSIDE. CALL LIGHT WITHIN REACH, BED IN LOW POSITION FOR SAFETY MEASURES. WILL CONTINUE TO MONITOR.
[2017-01-26] MEDS: LEVOTHYROXINE SODIUM 112 MCG TABLET PO SCH (07:56)
[2017-01-26] MEDS: PANTOPRAZOLE 40 MG TABLET.DR PO SCH (07:56)
[2017-01-26 07:57] LABS: BASOPHILS # (AUTO) 0.1 /CMM (0.0-0.2); BASOPHILS % (AUTO) 1.1 % (0.0-2.0); EOSINOPHILS # (AUTO) 0.7 /CMM (0.0-0.7); EOSINOPHILS % (AUTO) 8.6 % (0.0-6.0); HEMATOCRIT 32 % (33-45); HEMOGLOBIN 10.3 g/dL (11.5-14.8); LYMPHOCYTES # (AUTO) 1.6 /CMM (0.8-4.8); LYMPHOCYTES % (AUTO) 18.5 % (20.0-44.0); MEAN CORPUSCULAR HEMOGLOBIN 23 PG (26.0-33.0); MEAN CORPUSCULAR HGB CONC 32 g/dl (31.0-36.0); MEAN CORPUSCULAR VOLUME 71 fL (82-100); MONOCYTES # (AUTO) 1.1 /CMM (0.1-1.30); MONOCYTES % (AUTO) 12.3 % (2.0-12.0); NEUTROPHILS # (AUTO) 5.2 /CMM (1.8-8.9); NEUTROPHILS % (AUTO) 59.5 % (43.0-81.0); PLATELET COUNT (AUTO) 432 /CMM (150-450); RDW COEFFICIENT OF VARIATION 17.5 (11.5-15.0); RED BLOOD CELL COUNT(AUTO) 4.49 MIL/uL (4.0-5.2); WHITE BLOOD COUNT (AUTO) 8.7 K/uL (4.3-11.0)
[2017-01-26 08:00] VITALS: BP 151/73
[2017-01-26] MEDS: AMLODIPINE BESYLATE 5 MG TABLET PO SCH (08:27)
[2017-01-26] MEDS: DOCUSATE SODIUM 100 MG CAPSULE PO SCH ×2 (08:27→16:26)
[2017-01-26] MEDS: ASPIRIN 81 MG TAB.CHEW PO SCH (08:27)
[2017-01-26] MEDS: FUROSEMIDE 20 MG/2 ML VIAL IV SCH (08:28)
[2017-01-26] MEDS: QUETIAPINE FUMARATE 25 MG TABLET PO SCH ×2 (08:28→21:11)
[2017-01-26] MEDS: LISINOPRIL (20MG) 20 MG TABLET PO SCH (08:28)
[2017-01-26] MEDS: ENOXAPARIN SODIUM 40 MG/0.4 ML DISP.SYRIN SQ SCH ×2 (08:28→21:12)
--- NOTE | 2017-01-26 10:00 | NUR ---
MS RN NOTES SEEN AND EXAMINED BY DR. ROBBINS WITH NEW ORDERS MADE. SEEN ALSO BY DR. ARZOLA (PULFL) WITH ORDERS MADE, PATIENT FOR CT CHEST WITHOUT CONTRAST AND TB QUANTIFERON GOLD/COCCI SEROLOGIES TEST. PER DR. ROBBINS TO HOLD THE [employer] CX FOR NOW. ORDERS CARRIED OUT.
[2017-01-26 11:05] LABS: BAND % (MANUAL) 1 % (0.0-5.0); EOSINOPHILS % (MANUAL) 4 % (0-4); LYMPHOCYTES % (MANUAL) 16 % (16-48); MONOCYTES % (MANUAL) 9 % (0-11.0); NEUTROPHILS % (MANUAL) 70 (42-76)
--- NOTE | 2017-01-26 12:30 | NUR ---
MS RN NOTES PATIENT WENT DOWN FOR CT CHEST W/O CONTRAST.
[2017-01-26 16:00] VITALS: BP 142/65
--- NOTE | 2017-01-26 19:35 | NUR ---
MS RN NOTE RECEIVED PATIENT FROM DAY SHIFT, PATIENT IS ALERT AND ORIENTEDX2, CONFUSED SOMETIMES, SCREAMS OUT, 1:1 SITTER PRESENT FOR BEHAVIOR OBSERVATION. IV ON LEFT AC IS PATENT AND INTACT, HL ONLY. SRX2, BED IN LOW POSITION, CALL LIGHT WITHIN REACH, WILL CONTINUE TO MONITOR PATIENT.
[2017-01-26 20:00] VITALS: BP 146/54
[2017-01-26] MEDS: TRAZODONE 50 MG TABLET PO SCH (21:11)
[2017-01-26] MEDS: DIVALPROEX SODIUM 500 MG TABLET.DR PO SCH (21:11)
[2017-01-26] MEDS: ATORVASTATIN 40 MG TABLET PO SCH (21:11)
[2017-01-27] MEDS: LORAZEPAM 1 MG TABLET PO PRN ×2 (00:16→17:11)
--- NOTE | 2017-01-27 00:25 | NUR ---
MS RN NOTE PATIENT LOOKS ANXIOUS AND KEEPS SCREAMING OUT. ATIVAN 1MG PO GIVEN. WILL MONITOR EFFECTIVENESS.
[2017-01-27] MEDS: IBUPROFEN 400 MG TABLET PO PRN (03:19)
[2017-01-27] MEDS: MEROPENEM 500 MG in IV NS 0.9% 50 ML IV SCH ×2 (04:52→17:11)
--- NOTE | 2017-01-27 06:54 | NUR ---
MS RN NOTE PATIENT IS RESTING IN BED COMFORTABLY WITH 1:1 SITTER. NO CHANGE OF CONDITION NOTED. IV ON LEFT FA IS PATENT AND INTACT, HL. NO S/S OF RESPIRATORY DISTRESS OR PAIN, WILL ENDORSE TO DAY SHIFT FOR IMMANUEL.
--- NOTE | 2017-01-27 07:30 | NUR ---
MS RN NOTE RECEIVED PATIENT IN BED, AAO X 2, CONFUSED, SITTER AT BEDSIDE, ON RA, NO SOB, NOT IN ANY DISTRESS, NO SIGNS OF PAIN, IV ON LEFT AC FLUSHES WELL, SITE CLEAR. SRX2, BED IN LOW POSITION, CALL LIGHT WITHIN REACH, WILL CONTINUE TO MONITOR PATIENT.
[2017-01-27 07:39] LABS: BASOPHILS % (AUTO) 0.3 % (0.0-2.0); EOSINOPHILS # (AUTO) 0.3 /CMM (0.0-0.7); EOSINOPHILS % (AUTO) 2.9 % (0.0-6.0); HEMATOCRIT 33 % (33-45); HEMOGLOBIN 10.6 g/dL (11.5-14.8); LYMPHOCYTES # (AUTO) 1.1 /CMM (0.8-4.8); LYMPHOCYTES % (AUTO) 9.6 % (20.0-44.0); MEAN CORPUSCULAR HEMOGLOBIN 23 PG (26.0-33.0); MEAN CORPUSCULAR HGB CONC 32 g/dl (31.0-36.0); MEAN CORPUSCULAR VOLUME 71 fL (82-100); MONOCYTES # (AUTO) 1.1 /CMM (0.1-1.30); MONOCYTES % (AUTO) 9.1 % (2.0-12.0); NEUTROPHILS # (AUTO) 9.3 /CMM (1.8-8.9); NEUTROPHILS % (AUTO) 78.1 % (43.0-81.0); PLATELET COUNT (AUTO) 442 /CMM (150-450); RDW COEFFICIENT OF VARIATION 18.6 (11.5-15.0); RED BLOOD CELL COUNT(AUTO) 4.68 MIL/uL (4.0-5.2); WHITE BLOOD COUNT (AUTO) 11.9 K/uL (4.3-11.0)
[2017-01-27 07:41] LABS: CARBON DIOXIDE 28 mmol/L (21-32); CHLORIDE 98 mmol/L (98-107); CREATININE 0.8 mg/dL (0.6-1.3); GLUCOSE 134 mg/dL (74-106); MAGNESIUM 1.9 mg/dL (1.8-2.4); PHOSPHORUS 4.2 mg/dL (2.5-4.9); POTASSIUM 3.5 mmol/L (3.5-5.1); SODIUM SERUM 136 mmol/L (136-145); UREA NITROGEN, BLOOD 27 mg/dL (7-18)
[2017-01-27 08:00] VITALS: BP 136/69
[2017-01-27] MEDS: DOCUSATE SODIUM 100 MG CAPSULE PO SCH ×2 (08:33→17:00)
[2017-01-27] MEDS: ASPIRIN 81 MG TAB.CHEW PO SCH (08:33)
[2017-01-27] MEDS: LEVOTHYROXINE SODIUM 112 MCG TABLET PO SCH (08:33)
[2017-01-27] MEDS: QUETIAPINE FUMARATE 25 MG TABLET PO SCH ×2 (08:33→21:18)
[2017-01-27] MEDS: PANTOPRAZOLE 40 MG TABLET.DR PO SCH (08:33)
[2017-01-27] MEDS: AMLODIPINE BESYLATE 5 MG TABLET PO SCH (08:34)
[2017-01-27] MEDS: LISINOPRIL (20MG) 20 MG TABLET PO SCH (08:34)
[2017-01-27] MEDS: FUROSEMIDE 20 MG/2 ML VIAL IV SCH (08:34)
[2017-01-27 08:36] LABS: EOSINOPHILS % (MANUAL) 3 % (0-4); LYMPHOCYTES % (MANUAL) 8 % (16-48); MONOCYTES % (MANUAL) 6 % (0-11.0); NEUTROPHILS % (MANUAL) 83 (42-76)
[2017-01-27] MEDS: ENOXAPARIN SODIUM 40 MG/0.4 ML DISP.SYRIN SQ SCH ×2 (08:37→21:21)
--- NOTE | 2017-01-27 09:30 | NUR ---
MS RN NOTES ADMINISTERED DUE MEDS.
[2017-01-27 16:00] VITALS: BP_SYST 125; BP_SYST 157; BP_DIAS 62; BP_DIAS 87
--- NOTE | 2017-01-27 17:11 | NUR ---
MS RN NOTES STARTED MERREM IV.
--- NOTE | 2017-01-27 19:35 | NUR ---
MS/RN NOTES RECEIVED PT. LYING IN BED. AWAKE, ALERT AND ORIENTED X2. PT. IS CONFUSED. BREATHING EVEN AND UNLABORED ON ROOM AIR. NO SOB, RESPIRATORY DISTRESS OR COMPLAINTS OF PAIN NOTED AT THIS TIME. PT. WITH SITTER PRESENT AT BEDSIDE. PT. WITH LEFT FOREARM 22 GAUGE IV SALINE LOCK PRESENT, PATENT AND INTACT. BED IN LOWEST POSITION, CALL LIGHT WITHIN REACH, WILL CONTINUE TO MONITOR.
--- NOTE | 2017-01-27 19:38 | NUR ---
MS RN CLOSING NOTE PATIENT RESTING IN BED, AAO X 2, CONFUSED, SITTER AT BEDSIDE, ON RA, NO SOB, NOT IN ANY DISTRESS, NO SIGNS OF PAIN, IV ON LEFT FA 22G FLUSHES WELL, SITE CLEAR. SRX2, BED IN LOW POSITION, CALL LIGHT WITHIN REACH, ALL NEEDS MET. MADE COMFORTABLE. TURNED AND REPOSITIONED. ENDORSED TO NEXT SHIFT FOR IMMANUEL.
[2017-01-27] MEDS: ATORVASTATIN 40 MG TABLET PO SCH (21:17)
[2017-01-27] MEDS: DIVALPROEX SODIUM 500 MG TABLET.DR PO SCH (21:18)
[2017-01-27] MEDS: TRAZODONE 50 MG TABLET PO SCH (21:18)
[2017-01-28] MEDS: LORAZEPAM 1 MG TABLET PO PRN (02:09)
[2017-01-28] MEDS: MEROPENEM 500 MG in IV NS 0.9% 50 ML IV SCH (05:43)
--- NOTE | 2017-01-28 06:56 | NUR ---
MS/RN NOTES PT. LYING IN BED RESTING. BREATHING EVEN AND UNLABORED ON ROOM AIR. NO SOB, RESPIRATORY DISTRESS OR COMPLAINTS OF PAIN NOTED AT THIS TIME. PT. WITH SITTER PRESENT AT BEDSIDE. PT. WITH LEFT FOREARM 22 GAUGE IV SALINE LOCK PRESENT, PATENT AND INTACT. ALL PT. NEEDS MET. TURNED AND REPOSITIONED Q2H AND NEEDED. BED IN LOWEST POSITION, CALL LIGHT WITHIN REACH, WILL ENDORSE TO DAYSHIFT NURSE FOR CONTINUITY OF CARE.
--- NOTE | 2017-01-28 07:30 | NUR ---
MS RN NOTES ADMINISTERED DUE MEDS.
[2017-01-28 07:56] VITALS: BP 127/63
[2017-01-28 08:00] VITALS: BP 127/63
[2017-01-28 08:22] LABS: CALCIUM, SERUM 8.9 mg/dL (8.5-10.1); CARBON DIOXIDE 27 mmol/L (21-32); CHLORIDE 96 mmol/L (98-107); CREATININE 0.6 mg/dL (0.6-1.3); GLUCOSE 123 mg/dL (74-106); POTASSIUM 3.3 mmol/L (3.5-5.1); SODIUM SERUM 133 mmol/L (136-145); UREA NITROGEN, BLOOD 18 mg/dL (7-18)
[2017-01-28] MEDS: PANTOPRAZOLE 40 MG TABLET.DR PO SCH (08:26)
[2017-01-28] MEDS: LEVOTHYROXINE SODIUM 112 MCG TABLET PO SCH (08:26)
[2017-01-28] MEDS: DOCUSATE SODIUM 100 MG CAPSULE PO SCH ×2 (08:27→17:00)
[2017-01-28] MEDS: ASPIRIN 81 MG TAB.CHEW PO SCH (08:27)
[2017-01-28] MEDS: QUETIAPINE FUMARATE 25 MG TABLET PO SCH ×2 (08:29→21:57)
[2017-01-28] MEDS: AMLODIPINE BESYLATE 5 MG TABLET PO SCH (08:29)
[2017-01-28] MEDS: ENOXAPARIN SODIUM 40 MG/0.4 ML DISP.SYRIN SQ SCH ×2 (08:30→21:55)
[2017-01-28] MEDS: LISINOPRIL (20MG) 20 MG TABLET PO SCH (08:30)
[2017-01-28] MEDS: FUROSEMIDE 20 MG/2 ML VIAL IV SCH (08:30)
--- NOTE | 2017-01-28 09:30 | NUR ---
MS RN NOTES ADMINISTERED DUE MEDS.
[2017-01-28] MEDS ORDERED: POTASSIUM CHLORIDE 20 MEQ TAB.PRT.SR PO ONE (11:00)
--- NOTE | 2017-01-28 12:51 | NUR ---
MS RN NOTES SPOKE WITH CRISTAL LEON, UPDATE GIVEN, WILL NOTIFY HIM ONCE PT IS OK TO GO HOME. PER SON, ALL BELONGINGS TAKEN HOME WITH HIM.
--- NOTE | 2017-01-28 15:05 | NUR ---
MS RN NOTES SPOKE WITH PT'S SON, AND HE WANTS THE PATIENT TO STAY IN THE HOSPITAL UNTIL COMPLETELY WELL, EXPLAINED TO HER THAT FOR NOW HER MOM NEEDS A LOWER LEVEL OF CARE VS ACUTE CARE. CASE RITESH WHITAKER WILL TALK TO HER RE PROBABLE REHAB PLACEMENT.
[2017-01-28 16:29] VITALS: BP 132/79
[2017-01-28 17:09] LABS: QFT MITOGEN VALUE 0.67 IU/mL (.); QFT TB AG VALUE 0.05 IU/mL (.); QFT TB GOLD Negative (Negative)
--- NOTE | 2017-01-28 17:32 | NUR ---
MS-RN PATIENT EXPERIENCING MULTIPLE BM DURING SHIFT, HELD COLACE 100MG PO, WILL CONTINUE TO MONITOR.
[2017-01-28 18:00] VITALS: BP 132/79
[2017-01-28] MEDS: IBUPROFEN 400 MG TABLET PO PRN (18:38)
--- NOTE | 2017-01-28 18:39 | NUR ---
MS-RN PATIENT REPORTS HEADACHE, 5/10, ADMINISTERED MOTRIN PO 400 MG, WILL CONTINUE TO MONITOR.
--- NOTE | 2017-01-28 18:55 | NUR ---
MS RN CLOSING NOTE PT IN BED, RESTING, AAO X 2, CONFUSED, ON RA, NO SOB, NOT IN ANY DISTRESS, NO SIGNS OF PAIN, IV ON LEFT AC FLUSHES WELL, SITE CLEAR. SRX2, BED IN LOW POSITION, CALL LIGHT WITHIN REACH, TURNED AND REPOSITIONED. PM CARE RENDERED, ALL NEEDS MET, WILL ENDORSE TO NEXT SHIFT FOR IMMANUEL.
--- NOTE | 2017-01-28 19:10 | NUR ---
RN NOTES RECEIVED PT AWAKE, NO SOB, NOT IN DISTRESS, ON ROOM AIR AND TOLERATED WELL. PT ALERT AND ORIENTED X2, WITH CONFUSION NOTE. PT DENIES ANY PAIN AND DISCOMFORT AT THIS TIME. IV ACCESS ON LEFT FOREARM PATENT AND INTACT. KEPT BED IN THE LOWEST POSITION LOCKED, SIDE RAILS X2 UP WITH CALL LIGHT WITH IN REACH. KEPT COMFORTABLE AND ATTENDED. WILL CONTINUE TO MONITOR PT.
[2017-01-28 20:00] VITALS: BP 167/79
[2017-01-28] MEDS: DIVALPROEX SODIUM 500 MG TABLET.DR PO SCH (21:56)
[2017-01-28] MEDS: ATORVASTATIN 40 MG TABLET PO SCH (21:56)
[2017-01-28] MEDS: TRAZODONE 50 MG TABLET PO SCH (21:56)
--- NOTE | 2017-01-28 21:56 | NUR ---
RN NOTES ALL DUE MEDS GIVEN AND TOLERATED WELL.
--- NOTE | 2017-01-29 07:30 | NUR ---
RN NOTES PT ASLEEP, NO SOB, NOT IN DISTRESS, TOLERATING ROOM AIR WITH GOOD SATURATION. VITAL SIGNS STABLE, NO COMPLAIN OF PAIN, NO EPISODE OF NAUSEA AND VOMITING. STILL NOTED WITH EPISODE OF ANXIETY AND AGITATION, WITH PERIODS OF CONFUSION. REORIENT PT AT TIMES. ALL NEEDS MET. ENDORSED TO MORNING RN FOR CONTINUITY OF CARE.
--- NOTE | 2017-01-29 07:45 | NUR ---
RN MS NOTES RECEIVE PATIENT IN BED, NO APPARENT DISTRESS NOTED, DENIES SOB. IV LINE ON LEFT FORE ARM PATENT. ALL NEEDS MET, CALL LIGHT WITH IN REACH.
[2017-01-29 08:49] LABS: CALCIUM, SERUM 8.7 mg/dL (8.5-10.1); CARBON DIOXIDE 28 mmol/L (21-32); CHLORIDE 98 mmol/L (98-107); CREATININE 0.5 mg/dL (0.6-1.3); GLUCOSE 113 mg/dL (74-106); POTASSIUM 3.4 mmol/L (3.5-5.1); SODIUM SERUM 135 mmol/L (136-145); UREA NITROGEN, BLOOD 14 mg/dL (7-18)
[2017-01-29] MEDS ORDERED: FUROSEMIDE 20 MG TABLET PO SCH (09:00)
[2017-01-29] MEDS: AMLODIPINE BESYLATE 5 MG TABLET PO SCH (09:13)
[2017-01-29] MEDS: DOCUSATE SODIUM 100 MG CAPSULE PO SCH (09:13)
[2017-01-29] MEDS: ASPIRIN 81 MG TAB.CHEW PO SCH (09:13)
[2017-01-29 09:14] VITALS: BP 139/52
[2017-01-29] MEDS: LISINOPRIL (20MG) 20 MG TABLET PO SCH (09:14)
[2017-01-29] MEDS: PANTOPRAZOLE 40 MG TABLET.DR PO SCH (09:14)
[2017-01-29] MEDS: QUETIAPINE FUMARATE 25 MG TABLET PO SCH (09:14)
[2017-01-29] MEDS: LEVOTHYROXINE SODIUM 112 MCG TABLET PO SCH (09:14)
[2017-01-29] MEDS: ENOXAPARIN SODIUM 40 MG/0.4 ML DISP.SYRIN SQ SCH (09:16)
[2017-01-29] MEDS ORDERED: POTASSIUM CHLORIDE 20 MEQ TAB.PRT.SR PO SCH (12:00)
[2017-01-29] MEDS: LORAZEPAM 1 MG TABLET PO PRN (13:41)
--- NOTE | 2017-01-29 14:10 | NUR ---
RN MS NOTES PATIENT LEFT ON A GURNEY, VIA AMBULANCE ACCOMPANIED BY TWO PLC CONTROLS ENGINEER. NO APPARENT DISTRESS NOTED, VERBALLY RESPONSIVE, DENIES PAIN, DENIES SOB. ALL DUE MEDS GIVEN ALL NEEDS MET. CALLED [facility] TO GIVE REPORT, SPOKE TO RAVINDRA BEE. BELONGINGS LIST CO SIGNED BY TWO NURSES. DISCHARGE INSTRUCTIONS GIVEN TO EMT. PATIENT UNABLE TO RECEIVE EDUCATION DUE TO ALTERED MENTAL STATUS,. DISCHARGE PAPERS CO SIGNED BY TWO RNS.
--- NOTE | 2017-01-29 15:57 | NUR ---
0730 RECEIVED PATIENT IN BED, NO APPARENT DISTRESS NOTED, DENIES PAIN, DENIES SOB. IV LINE ON RIGHT AC PATENT, INFUSING D5 1/2 NS AT 60 ML/HR. ALL NEEDS MET, CALL LIGHT WITHIN REACH.
== END 2017-01-29 14:00 | DRG 871 ==
LOC: ER 18:23 → TELE1 19:48 → MEDSG1 01-23 19:03 → MED 01-25 05:16
PROVIDERS: ADMIT Internal Medicine; ATTEND Internal Medicine
PROC: 30233N1 Transfusion of Nonautologous Red Blood Cells into Peripheral Vein, Percutaneous Approach (ICD-10-PCS; principal; 2017-01-22)
DX: A41.9 Sepsis, unspecified organism (principal); G93.41 Metabolic encephalopathy; J69.0 Pneumonitis due to inhalation of food and vomit; I21.4 Non-ST elevation (NSTEMI) myocardial infarction; I50.33 Acute on chronic diastolic (congestive) heart failure; N39.0 Urinary tract infection, site not specified; E22.2 Syndrome of inappropriate secretion of antidiuretic hormone; J44.0 Chronic obstructive pulmonary disease with (acute) lower respiratory infection; D68.59 Other primary thrombophilia; F02.81 Dementia in other diseases classified elsewhere, unspecified severity, with behavioral disturbance; R65.20 Severe sepsis without septic shock; B96.89 Other specified bacterial agents as the cause of diseases classified elsewhere; D50.9 Iron deficiency anemia, unspecified; G20 Parkinson's disease; Z66 Do not resuscitate; I11.0 Hypertensive heart disease with heart failure; E87.6 Hypokalemia; Z85.3 Personal history of malignant neoplasm of breast; F41.1 Generalized anxiety disorder; Z85.850 Personal history of malignant neoplasm of thyroid; Z85.028 Personal history of other malignant neoplasm of stomach; Z90.13 Acquired absence of bilateral breasts and nipples; E89.0 Postprocedural hypothyroidism; Z90.3 Acquired absence of stomach [part of]; F31.9 Bipolar disorder, unspecified; I25.10 Atherosclerotic heart disease of native coronary artery without angina pectoris; E11.9 Type 2 diabetes mellitus without complications; N32.81 Overactive bladder; Z87.440 Personal history of urinary (tract) infections; Z74.09 Other reduced mobility; Z82.49 Family history of ischemic heart disease and other diseases of the circulatory system; Z79.899 Other long term (current) drug therapy; Z78.9 Other specified health status; Z79.82 Long term (current) use of aspirin; I25.2 Old myocardial infarction; F17.210 Nicotine dependence, cigarettes, uncomplicated; E78.5 Hyperlipidemia, unspecified; E86.0 Dehydration; I67.2 Cerebral atherosclerosis; R91.8 Other nonspecific abnormal finding of lung field; M51.35 Other intervertebral disc degeneration, thoracolumbar region; M41.55 Other secondary scoliosis, thoracolumbar region; R63.1 Polydipsia
CPT/HCPCS: 36415; 70450-TC; 71010-TC; 71250-TC; 80048-TC; 80053-TC; 80061-TC; 80076-TC; 80164-TC; 80202-TC; 81000-TC; 82306; 82378; 82728-TC; 83540-TC; 83605-TC; 83615-TC; 83735-TC; 83880; 83935-TC; 84100-TC; 84300-TC; 84443-TC; 84484-TC; 84550-TC; 85025-TC; 85045-TC; 85652-TC; 85730-TC; 86140-TC; 86850-TC; 86921-TC; 87040-TC; 87081-TC; 87086-TC; 93307-TC; 94799-TC; 97001-TC; A4216; A4606; J1650; J1940; J1956; J2185; J3370; J3475; J3480; J7050; J7060; P9016-BL; Z7610